=== PATIENT | male | born 1985 | race Caucasian/White ===

== ENCOUNTER 2018-02-24 16:25 | Emergency (ER) | payer BC ==
[2018-02-24] MEDS ORDERED: KETOROLAC 30 MG/1 ML SDV IVP ONE (16:57)
[2018-02-24] MEDS ORDERED: NS 1,000 ML IV ONE (16:57)
[2018-02-24] MEDS ORDERED: ONDANSETRON 4 MG/2 ML VIAL IVP ONE (16:57)
[2018-02-24] MEDS ORDERED: LIDOCAINE 2% VISCOUS 15 ML UDCUP PO ONE (16:57)
[2018-02-24] MEDS ORDERED: HYOSCYAMINE SULFATE 0.125 MG TAB PO ONE (16:57)
[2018-02-24] MEDS ORDERED: MAG HYDROX/AL HYDROX/SIMETH 30 ML UDCUP PO ONE (16:57)
--- NOTE | 2018-02-24 17:01 | EDPHY ---
H & P Stated Complaint: upper abd pain/n/v/d Time Seen by Provider: 02/24/18 16:51 HPI/ROS: CHIEF COMPLAINT: Epigastric pain HISTORY OF PRESENT ILLNESS: The patient is a 33-year-old man who has a history of "a sensitive stomach". He states that he when out to [place] food and had duck last night and woke up at 6:00 a.m. With epigastric pain and burning. It is similar to previous episodes where he was treated for peptic ulcer disease. He took antacids for month and his symptoms resolved. He is not currently on antacids. He has not had a fever. He vomited once nonbloody. No diarrhea. No lower abdominal pain. He reports history of appendicitis that was treated with antibiotics alone. He states that this does not feel similar. No flank pain. No testicular pain. REVIEW OF SYSTEMS: Constitutional: denies: chills, fever, recent illness, recent injury EENTM: denies: blurred vision, double vision, nose congestion Respiratory: denies: cough, shortness of breath Cardiac: denies: chest pain, irregular heart rate, lightheadedness, palpitations Gastrointestinal/Abdominal: See HPI denies: blood streaked stools Genitourinary: denies: dysuria, frequency, hematuria, pain Musculoskeletal: denies: joint pain, muscle pain Skin: denies: lesions, rash, jaundice, bruising Neurological: denies: headache, numbness, paresthesia, tingling, dizziness, weakness Hematologic/Lymphatic: denies: blood clots, easy bleeding, easy bruising Immunologic/allergic: denies: HIV/AIDS, transplant EXAM: GENERAL: Uncomfortable, moderate distress. HEAD: Atraumatic, normocephalic. EYES: Pupils equal round and reactive to light, extraocular movements intact, sclera anicteric, conjunctiva are normal. ENT: TMs normal, nares patent, oropharynx clear without exudates. Moist mucous membranes. NECK: Normal range of motion, supple without lymphadenopathy or JVD. LUNGS: Breath sounds clear to auscultation bilaterally and equal. No wheezes rales or rhonchi. HEART: Regular rate and rhythm without murmurs, rubs or gallops. ABDOMEN: Mild epigastric pain and tenderness, negative Barksdale's, normoactive bowel sounds. No guarding, no rebound. No masses appreciated. BACK: No CVA tenderness, no spinal tenderness, step-offs or deformities EXTREMITIES: Normal range of motion, no pitting or edema. No clubbing or cyanosis. NEUROLOGICAL: Cranial nerves II through XII grossly intact. Normal speech, normal gait. 5/5 strength, normal movement in all extremities, normal sensation PSYCH: Normal mood, normal affect. SKIN: Warm, dry, normal turgor, no visible rashes or lesions. Source: Patient Exam Limitations: No limitations - Personal History Current Tetanus/Diphtheria Vaccine: No - Medical/Surgical History Hx Asthma: No Hx Chronic Respiratory Disease: No Hx Diabetes: No Hx Cardiac Disease: No Hx Renal Disease: No Hx Cirrhosis: No Hx Alcoholism: No Hx HIV/AIDS: No Hx Splenectomy or Spleen Trauma: No Other PMH: denies - Family History Significant Family History: No pertinent family hx - Social History Smoking Status: Never smoked Alcohol Use: Sober Drug Use: None Constitutional: Initial Vital Signs Temperature (C) 36.9 C 02/24/18 16:31 Heart Rate 99 02/24/18 16:31 Respiratory Rate 18 02/24/18 16:31 Blood Pressure 118/83 H 02/24/18 16:31 O2 Sat (%) 98 02/24/18 16:31 O2 Delivery Mode Room Air Allergies/Adverse Reactions: No Known Allergies Allergy (Unverified 02/24/18 16:29) Home Medications: Medication Instructions Recorded Famotidine [Pepcid] 40 mg PO HS #30 tablet 02/24/18 Levothyroxine 02/24/18 Medical Decision Making - Diagnostics Imaging Results: Imaging Impressions Abdomen Ultrasound 02/24/18 16:58 Impression: Normal right upper quadrant ultrasound. Findings discussed with PAULIE MCHUGH 02/24/2018 at 18:20. Imaging: Discussed imaging studies w/ call center consultant Radiologist ED Course/Re-evaluation: 6:40 p.m. the patient is feeling significantly better. His abdominal exam is nontender. He does have a mild headache now. I will treat him with Reglan. I will start him on antacids and have him follow up with GI. He and his are happy with this plan. We discussed indications for returning. 7:50 p.m. the patient is feeling much better. He had a mild dystonic reaction after the Reglan but it is now worn off. His headache is gone. Differential Diagnosis: Partial list of the Differential diagnosis considered include but were not limited to; peptic ulcer disease, biliary disease, liver disease, perforation and although unlikely based on the history and physical exam, I also considered appendicitis, diverticulitis, torsion, obstruction, ischemia, volvulus. I discussed these differential diagnoses and the plan with the patient as well as the usual and expected course. The patient understands that the diagnosis is provisional and that in medicine we are not always correct and that further workup is often warranted. Usual and customary warnings were given. All of the patient's questions were answered. The patient was instructed to return to the emergency department should the symptoms at all worsen or return, otherwise to followup with the physician as we discussed. - Data Points Laboratory Results: Laboratory Results 02/24/18 17:02/24/18 17:02/24/18 02/24/18 02/24/18 17:05 17:05 17:05 WBC 8.78 10^3/uL 10^3/uL (3.80-9.50) RBC 5.59 10^6/uL 10^6/uL (4.40-6.38) Hgb 17.6 g/dL H g/dL (13.7-17.5) Hct 48.4 % % (40.0-51.0) MCV 86.6 fL fL (81.5-99.8) MCH 31.5 pg pg (27.9-34.1) MCHC 36.4 g/dL g/dL (32.4-36.7) RDW 12.3 % % (11.5-15.2) Plt Count 290 10^3/uL 10^3/uL (150-400) MPV 10.0 fL fL (8.7-11.7) Neut % (Auto) 91.4 % H % (39.3-74.2) Lymph % (Auto) 3.9 % L % (15.0-45.0) [place] % (Auto) 4.1 % L % (4.5-13.0) Eos % (Auto) 0.2 % L % (0.6-7.6) Baso % (Auto) 0.2 % L % (0.3-1.7) Nucleat RBC Rel Count 0.0 % % (0.0-0.2) Absolute Neuts (auto) 8.02 10^3/uL H 10^3/uL (1.70-6.50) Absolute Lymphs (auto) 0.34 10^3/uL L 10^3/uL (1.00-3.00) Absolute Monos (auto) 0.36 10^3/uL 10^3/uL (0.30-0.80) Absolute Eos (auto) 0.02 10^3/uL L 10^3/uL (0.03-0.40) Absolute Basos (auto) 0.02 10^3/uL 10^3/uL (0.02-0.10) Absolute Nucleated RBC 0.00 10^3/uL 10^3/uL (0-0.01) Immature Gran % 0.2 % % (0.0-1.1) Seg Neutrophils % 54 % % Band Neutrophils % 36 % % Lymphocytes % 5 % % Monocytes % 4 % % Eosinophils % 1 % % Immature Gran # 0.02 10^3/uL 10^3/uL (0.00-0.10) RBC/WBC/PLT Morphology NORMAL (NORMAL) Platelet Estimate ADEQUATE (ADEQ) PT 13.9 SEC SEC (12.0-15.0) INR 1.05 (0.83-1.16) APTT 27.8 SEC SEC (23.0-38.0) Sodium 139 mEq/L mEq/L (135-145) Potassium 4.2 mEq/L mEq/L (3.3-5.0) Chloride 102 mEq/L mEq/L (97-110) Carbon Dioxide 22 mEq/l mEq/l (22-31) Anion Gap 15 mEq/L mEq/L (8-16) BUN 19 mg/dL mg/dL (7-23) Creatinine 0.9 mg/dL mg/dL (0.7-1.3) Estimated GFR > 60 Glucose 96 mg/dL mg/dL (70-100) Calcium 10.2 mg/dL mg/dL (8.5-10.4) Total Bilirubin 1.4 mg/dL mg/dL (0.1-1.4) Conjugated Bilirubin 0.3 mg/dL mg/dL (0.0-0.5) Unconjugated Bilirubin 1.1 mg/dL mg/dL (0.0-1.1) AST 24 IU/L IU/L (17-59) ALT 27 IU/L IU/L (21-72) Alkaline Phosphatase 76 IU/L IU/L (38-126) Total Protein 7.8 g/dL g/dL (6.3-8.2) Albumin 5.0 g/dL g/dL (3.5-5.0) Lipase 36 IU/L IU/L (23-300) Microbiology Results: MICROBIOLOGY 02/24/18 17:35 Stool Gastrointestinal Tract Panel (PCR) - Final Norovirus Gi/Gii Medications Given: Discontinued Medications Al Hydroxide/Mg Hydroxide (Maalox Susp) 30 ml PO ONCE ONE Stop: 02/24/18 16:58 Last Admin: 02/24/18 17:24 Dose: 30 ml Diphenhydramine HCl (Benadryl Injection) 25 mg IVP EDNOW ONE Stop: 02/24/18 19:12 Last Admin: 02/24/18 19:19 Dose: 25 mg Hyoscyamine Sulfate (Levsin, Hyomax-Sl) 0.25 mg PO ONCE ONE Stop: 02/24/18 16:58 Last Admin: 02/24/18 17:24 Dose: 0.25 mg Sodium Chloride (Ns) 1,000 mls @ 0 mls/hr IV EDNOW ONE; Wide Open PRN Reason: Protocol Stop: 02/24/18 16:58 Last Admin: 02/24/18 17:23 Dose: 1,000 mls Ketorolac Tromethamine (Toradol) 15 mg IVP EDNOW ONE Stop: 02/24/18 16:58 Last Admin: 02/24/18 17:24 Dose: 15 mg Lidocaine (Lidocaine 2% Viscous) 15 ml PO ONCE ONE Stop: 02/24/18 16:58 Last Admin: 02/24/18 17:24 Dose: 15 ml Metoclopramide HCl (Reglan Injection) 10 mg IVP EDNOW ONE Stop: 02/24/18 18:44 Last Admin: 02/24/18 18:59 Dose: 10 mg Ondansetron HCl (Zofran) 4 mg IVP EDNOW ONE Stop: 02/24/18 16:58 Last Admin: 02/24/18 17:24 Dose: 4 mg Pantoprazole Sodium (Protonix) 40 mg IVP Q6H YOBANI Stop: 08/24/18 00:42 Last Admin: 02/24/18 18:59 Dose: 40 mg Departure - Departure Disposition: Home, Routine, Self-Care Clinical Impression: Epigastric abdominal pain Condition: Fair Instructions: Epigastric Pain (ED) Referrals: NONE *PRIMARY CARE P,. [Primary Care Provider] - As per Instructions Niko Fountain MD [Medical Doctor] - 5-7 days, call for appt. Prescriptions: Famotidine [Pepcid] 40 mg PO HS #30 tablet
[2018-02-24] MEDS ORDERED: KETOROLAC 15 MG/1 ML SDV ONE (17:16)
[2018-02-24 17:24] LABS: PLATELET COUNT 290 10^3/uL (150-400)
[2018-02-24 17:37] LABS: INR 1.05 (0.83-1.16); PROTIME(PATIENT) 13.9 SEC (12.0-15.0)
[2018-02-24] MEDS ORDERED: METOCLOPRAMIDE 10 MG/2 ML VIAL IVP ONE (18:43)
[2018-02-24] MEDS ORDERED: PANTOPRAZOLE SODIUM 40 MG VIAL ONE (18:55)
[2018-02-24] MEDS: PANTOPRAZOLE SODIUM 40 MG VIAL IVP SCH (18:59)
[2018-02-24 20:42] VITALS: BP 117/52
== END 2018-02-24 20:42 | disposition home or self-care (01) ==
DX: R10.13 Epigastric pain (principal); E86.9 Volume depletion, unspecified
CPT/HCPCS: 96374; J1200; J1885; J2405; J2765